=== PATIENT | female | born 1960 | race Caucasian/White ===

== ENCOUNTER 2017-01-11 12:25 | Observation (INO) | payer OTHER ==
[~2017-01-11] VITALS: Ht 157.5 cm; Wt 66.1 kg
[2017-01-11 13:20] LABS: CREATININE 0.8 mg/dL (0.6-1.3); POTASSIUM 3.9 mEq/L (3.7-5.4)
[2017-01-11 13:30] LABS: BASOPHIL COUNT 0.1 K/uL (0-0.1); EOSINOPHIL (%) 2.5 % (0-5); EOSINOPHIL COUNT 0.2 K/uL (0-0.3); HEMATOCRIT 41.3 % (36.0-46.0); IMMATURE GRANULOCYTE (%) 0.5 % (0.0-0.7); IMMATURE GRANULOCYTE COUNT 0.4 K/uL; LYMPHOCYTE COUNT 2.8 K/uL (1.0-2.8); MCH 29.1 PG (29.0-34.0); MCHC 33.9 G/DL (30.0-36.0); MCV 85.9 FL (83-99); MEAN PLAT.VOLUME 10.1 uM^3 (9.5-12.4); MONOCYTE (%) 4.5 % (3-12); MONOCYTE COUNT 0.4 K/uL (0-0.8); NEUTROPHIL (%) 59.5 % (45-76); NEUTROPHIL COUNT 5.2 K/uL (1.8-6.4); PLATELET COUNT 359 K/uL (156-360); RBC DIS.WIDTH-CV 13.6 % (11.8-14.6); RBC DIS.WIDTH-SD 41.8 % (39-53); RED BLOOD COUNT 4.81 M/uL (3.80-5.20); WHITE BLOOD COUNT 8.7 K/uL (4.1-10.2)
[2017-01-11 13:35] LABS: CARBON DIOXIDE (BICARBONATE) 30.6 MEQ/L (20-31)
[2017-01-11 13:41] LABS: INTER. NORMALIZED RATIO 1.1; PROTHROMBIN TIME 10.9 (9.2-11.2); PTT 30.2 (25-32)
[2017-01-11 13:42] LABS: CHLORIDE 97 mEq/L (99-109); POTASSIUM 3.8 mEq/L (3.7-5.4); SODIUM 133 mEq/L (136-147)
[2017-01-11 13:45] LABS: ANION GAP 10 MEQ/L (2-14)
[2017-01-11 13:46] LABS: TOTAL BILIRUBIN 0.2 mg/dL (0.0-1.0)
[2017-01-11 13:48] LABS: ALKALINE PHOSPHATASE 116 IU/L (3-129); GFR ESTIMATE (CALCULATED) > 59 mL/min/
[2017-01-11 13:49] LABS: UREA NITROGEN (BUN) 23 mg/dL (9-23)
[2017-01-11 13:50] LABS: DIRECT BILIRUBIN 0.1 mg/dL (0.0-0.3)
[2017-01-11 13:51] LABS: TROP-I INTERPRETATION NEGATIVE; TROPONIN-I 0.02 ng/mL (0.0-0.30)
[2017-01-11 13:51] LABS: GLUCOSE 507 mg/dL (70-99)
[2017-01-11 14:46] LABS: HDL CHOLESTEROL 31 MG/DL (Desirable>=50); NON-HDL CHOLESTEROL 321 mg/dL (Desirable<160); TOTAL CHOLESTEROL 352 mg/dL (Desirable<200); TRIGLYCERIDES 550 MG/DL (Normal: <150)
[2017-01-11] MEDS ORDERED: METFORMIN HCL750 MG PO (15:09)
[2017-01-11] MEDS ORDERED: GABAPENTIN400 MG PO (15:09)
[2017-01-11] MEDS ORDERED: CITALOPRAM HBR40 MG PO (15:09)
[2017-01-11] MEDS ORDERED: ASPIR 8181 M1 PO (15:09)
[2017-01-11] MEDS ORDERED: CARVEDILOL25 MG PO (15:09)
[2017-01-11] MEDS ORDERED: ELIQUIS5 MG PO (15:09)
[2017-01-11] MEDS ORDERED: FENOFIBRATE145 M1 PO (15:10)
[2017-01-11] MEDS ORDERED: HYDROCHLOROTHIA25 MG PO (15:10)
[2017-01-11] MEDS ORDERED: TOUJEO SOL300 UNIT/1 SC (15:10)
[2017-01-11] MEDS ORDERED: PRAVASTATIN SOD40 MG PO (15:10)
[2017-01-11] MEDS ORDERED: NOVOLOG 10100 UNITS/ SC (15:10)
[2017-01-11] MEDS ORDERED: LISINOPRIL5 MG PO (15:10)
[2017-01-11 16:01] LABS: POINT-OF-CARE METER ID UU14100415
[2017-01-11 16:26] LABS: ADD MIUA? YES; BILIRUBIN NEGATIVE; BLOOD SMALL; COLOR YELLOW ((YELLOW)); GLUCOSE (STRIP) >=500; KETONES NEGATIVE; LEUKOCYTES MODERATE; NITRITE NEGATIVE; PROTEIN (STRIP) 100; UROBILINOGEN 0.2 MG/DL (0.2-1.0)
[2017-01-11 16:46] LABS: BACTERIA RARE /HPF; EPITHELIAL CELLS 1+ /HPF; MUCUS TRACE /LPF; UCUL ADDED? YES; WHITE BLOOD CELLS TNTC /HPF (0-5)
[2017-01-11 17:20] VITALS: BP 162/74
[2017-01-11 20:33] VITALS: BP 158/70
[2017-01-11 22:03] LABS: POINT-OF-CARE METER ID UU14174225
[2017-01-12 00:40] VITALS: BP 170/74
[2017-01-12 03:40] VITALS: BP 160/70
[2017-01-12 07:12] LABS: HEMATOCRIT 44.3 % (36.0-46.0); MCH 28.2 PG (29.0-34.0); MCHC 32.1 G/DL (30.0-36.0); MCV 87.9 FL (83-99); MEAN PLAT.VOLUME 10.2 uM^3 (9.5-12.4); PLATELET COUNT 356 K/uL (156-360); RBC DIS.WIDTH-CV 13.9 % (11.8-14.6); RBC DIS.WIDTH-SD 44.1 % (39-53); RED BLOOD COUNT 5.04 M/uL (3.80-5.20); WHITE BLOOD COUNT 7.9 K/uL (4.1-10.2)
[2017-01-12 07:39] LABS: ANION GAP 7 MEQ/L (2-14); CHLORIDE 106 MEQ/L (99-109); POTASSIUM 3.7 MEQ/L (3.7-5.4); SAMPLE HEMOLYSIS CHECK 0; SAMPLE ICTERIC CHECK 0; SAMPLE LIPEMIA CHECK 0; UREA NITROGEN (BUN) 16 mg/dL (9-23)
[2017-01-12 07:41] LABS: GFR ESTIMATE (CALCULATED) > 59 mL/min/; GLUCOSE 96 mg/dL (70-99); SODIUM 140 MEQ/L (136-147)
[2017-01-12 07:57] VITALS: BP 164/81
[2017-01-12 08:40] LABS: Estimated Average Glucose 364 mg/dL (70-123); HEMOGLOBIN A1c (GLYCOHEMOGLOB) 14.3 % HGB (Below 5.7)
[2017-01-12 09:18] LABS: PROTHROMBIN TIME 10.4 (9.2-11.2)
[2017-01-12 10:02] LABS: POINT-OF-CARE METER ID UU14100415
[2017-01-12 11:03] VITALS: BP 154/71
[2017-01-12] MEDS ORDERED: NOVOLOG 10100 UNITS/ SC (11:40)
[2017-01-12] MEDS ORDERED: TOUJEO SOL300 UNIT/1 SC (11:40)
== END 2017-01-12 13:38 | disposition home or self-care (01) ==
LOC: EME 12:25 → EDOF 15:31 → 5SOUTH 15:31
PROVIDERS: Emergency Medicine; Internal Medicine
DX: E11.65 Type 2 diabetes mellitus with hyperglycemia (principal); Z86.73 Personal history of transient ischemic attack (TIA), and cerebral infarction without residual deficits; E78.5 Hyperlipidemia, unspecified; I10 Essential (primary) hypertension; F17.200 Nicotine dependence, unspecified, uncomplicated
CPT/HCPCS: 70450; 70496; 70498; 80047; 80048; 80061; 80076; 81003; 82010; 82803; 82948; 83036; 84484; 85025; 85027; 85610; 85730; 87086; 93005; 93306; 99281; 99285; G0378; J1815; J7030

== ENCOUNTER 2017-06-21 14:42 | Inpatient (IN) | payer OTHER ==
[~2017-06-21] VITALS: Ht 162.6 cm; Wt 61.0 kg
[~2017-06-21 14:42] MED LIST: ASPIR 8181 M1 PO; CARVEDILOL25 MG PO; CITALOPRAM HBR40 MG PO; ELIQUIS5 MG PO; FENOFIBRATE145 M1 PO; GABAPENTIN400 MG PO; HYDROCHLOROTHIA25 MG PO; LISINOPRIL5 MG PO; METFORMIN HCL750 MG PO; NOVOLOG 10100 UNITS/ SC; PRAVASTATIN SOD40 MG PO; TOUJEO SOL300 UNIT/1 SC
[2017-06-21 15:24] LABS: EOSINOPHIL (%) 0.1 % (0-5); HEMATOCRIT 56.8 % (36.0-46.0); IMMATURE GRANULOCYTE (%) 1.2 % (0.0-0.7); IMMATURE GRANULOCYTE COUNT 0.1 K/uL; INSTRUMENT ABS NEUTROPHIL CT 9.5 K/uL; LYMPHOCYTE COUNT 1.7 K/uL (1.0-2.8); MCH 28.7 PG (29.0-34.0); MCHC 34.3 G/DL (30.0-36.0); MCV 83.7 FL (83-99); MEAN PLAT.VOLUME 8.9 uM^3 (9.5-12.4); MONOCYTE (%) 1.9 % (3-12); MONOCYTE COUNT 0.2 K/uL (0-0.8); NEUTROPHIL (%) 81.9 % (45-76); NEUTROPHIL COUNT 9.5 K/uL (1.8-6.4); PLATELET COUNT 478 K/uL (156-360); RBC DIS.WIDTH-CV 13.3 % (11.8-14.6); RBC DIS.WIDTH-SD 39.8 % (39-53); RED BLOOD COUNT 6.79 M/uL (3.80-5.20); WHITE BLOOD COUNT 11.6 K/uL (4.1-10.2)
[2017-06-21 15:32] LABS: PROTHROMBIN TIME 10.8 SEC (10.2-12.9)
[2017-06-21 15:35] LABS: CHLORIDE 96 mEq/L (99-109); POTASSIUM 3.3 mEq/L (3.7-5.4); PTT 37.7 SEC (25-37); SODIUM 137 mEq/L (136-147)
[2017-06-21 15:37] LABS: GLUCOSE 82 mg/dL (70-99)
[2017-06-21 15:39] LABS: ANION GAP 14 MEQ/L (2-14); TOTAL BILIRUBIN 0.3 mg/dL (0.0-1.0)
[2017-06-21 15:41] LABS: ALKALINE PHOSPHATASE 153 IU/L (3-129); GFR ESTIMATE (CALCULATED) > 59 mL/min/
[2017-06-21 15:42] LABS: UREA NITROGEN (BUN) 15 mg/dL (9-23)
[2017-06-21 16:00] LABS: POINT-OF-CARE METER ID UU13113702
[2017-06-21 17:15] LABS: ADD MIUA? YES; BILIRUBIN NEGATIVE; BLOOD NEGATIVE; COLOR YELLOW ((YELLOW)); GLUCOSE (STRIP) >=500; KETONES NEGATIVE; LEUKOCYTES NEGATIVE; NITRITE NEGATIVE; PROTEIN (STRIP) >=500; SPECIFIC GRAVITY 1.009 (1.000-1.030); UROBILINOGEN 0.2 MG/DL (0.2-1.0)
[2017-06-21 17:30] LABS: BACTERIA RARE /HPF; EPITHELIAL CELLS RARE /HPF; GRANULAR CASTS 0-5 /LPF; HYALINE CASTS 0-5 /LPF; MUCUS TRACE /LPF; RED BLOOD CELLS 0-5 /HPF (0-5); UCUL ADDED? NO; WHITE BLOOD CELLS 0-5 /HPF (0-5)
[2017-06-21 18:30] LABS: TROP-I INTERPRETATION NEGATIVE; TROPONIN-I 0.06 ng/mL (0.0-0.30)
[2017-06-21 22:30] VITALS: BP 204/108
[2017-06-21] MEDS ORDERED: GABAPENTIN300 MG PO (22:37)
[2017-06-21] MEDS ORDERED: COUMADIN1 MG PO (22:38)
[2017-06-21] MEDS ORDERED: NOVOLOG 10100 UNITS/ SC (22:40)
[2017-06-21 22:55] LABS: LIPASE 12 U/L (1.0-51.0)
[2017-06-21 23:21] LABS: AMPHETAMINES QUANT VALUE 0 NG/ML; BARBITUATES QUANT VALUE 0 NG/ML; BENZODIAZEPINES QUANT VALUE 0 NG/ML; BENZODIAZEPINES, URINE SCREEN Negative (200 ng/mL); MARIJUANA QUANT VALUE 0 NG/ML; OPIATES QUANTITATIVE VALUE 0 NG/ML; PHENCYCLIDINE QUANT VALUE 0 NG/ML
[2017-06-21 23:44] LABS: METH RESISTANT S AUREUS PCR NEGATIVE (NEGATIVE)
[2017-06-21 23:45] LABS: PROBE CHECK PASS; SPECIMEN PROCESSING CONTROL PASS
[2017-06-22] VITALS (16 sets, daily range): BP systolic 120–219; BP diastolic 64–129
[2017-06-22 01:27] LABS: POINT-OF-CARE METER ID UU13113731
[2017-06-22 04:33] LABS: HEMATOCRIT 41.2 % (36.0-46.0); MCH 28.6 PG (29.0-34.0); MCHC 34.5 G/DL (30.0-36.0); MCV 83.1 FL (83-99); PLATELET COUNT 377 K/uL (156-360); RBC DIS.WIDTH-SD 38.9 % (39-53); RED BLOOD COUNT 4.96 M/uL (3.80-5.20); WHITE BLOOD COUNT 11.5 K/uL (4.1-10.2)
[2017-06-22 04:35] LABS: CHLORIDE 103 mEq/L (99-109); SODIUM 139 mEq/L (136-147)
[2017-06-22 04:36] LABS: MAGNESIUM 1.4 mg/dL (1.3-2.7)
[2017-06-22 04:38] LABS: ANION GAP 10 MEQ/L (2-14); GLUCOSE 211 mg/dL (70-99)
[2017-06-22 04:41] LABS: GFR ESTIMATE (CALCULATED) > 59 mL/min/
[2017-06-22 04:42] LABS: UREA NITROGEN (BUN) 11 mg/dL (9-23)
[2017-06-22 04:47] LABS: TROP-I INTERPRETATION NEGATIVE; TROPONIN-I 0.11 ng/mL (0.0-0.30)
[2017-06-22 06:43] LABS: POINT-OF-CARE METER ID UU14174217
[2017-06-22 12:39] LABS: TROP-I INTERPRETATION NEGATIVE; TROPONIN-I 0.06 ng/mL (0.0-0.30)
[2017-06-22 12:45] LABS: Estimated Average Glucose 375 mg/dL (70-123); HEMOGLOBIN A1c (GLYCOHEMOGLOB) 14.7 % HGB (Below 5.7)
[2017-06-22 12:54] LABS: HDL CHOLESTEROL 35 MG/DL (Desirable>=50); LDL CHOLESTEROL 321 mg/dL (Desirable<100); NON-HDL CHOLESTEROL 389 mg/dL (Desirable<160); TOTAL CHOLESTEROL 424 mg/dL (Desirable<200); TRIGLYCERIDES 338 MG/DL (Normal: <150)
[2017-06-22] MEDS ORDERED: COREG25 M1 PO (15:01)
[2017-06-22] MEDS ORDERED: ASPIRIN81 M2 PO (15:02)
[2017-06-22] MEDS ORDERED: GABAPENTIN400 MG PO (15:03)
[2017-06-22] MEDS ORDERED: TOUJEO SOL300 UNIT/1 SC (15:04)
[2017-06-22] MEDS ORDERED: ELIQUIS5 MG PO (15:05)
[2017-06-22] MEDS ORDERED: NOVOLOG PE100 UNITS/ SC (15:06)
[2017-06-22] MEDS ORDERED: HYDROCHLOROTHIA25 MG PO (15:07)
[2017-06-22] MEDS ORDERED: PRAVACHOL40 MG PO (15:07)
[2017-06-22] MEDS ORDERED: LISINOPRIL5 MG PO (15:08)
[2017-06-22] MEDS ORDERED: METFORMIN HCL750 MG PO (15:08)
[2017-06-22] MEDS ORDERED: CELEXA40 MG PO (15:09)
[2017-06-22] MEDS ORDERED: FENOFIBRATE145 M1 PO (15:10)
[2017-06-22 18:14] LABS: POINT-OF-CARE METER ID UU14174217
[2017-06-23] VITALS (18 sets, daily range): BP systolic 142–213; BP diastolic 60–94
[2017-06-23 00:58] LABS: POINT-OF-CARE METER ID UU14174217
[2017-06-23 06:06] LABS: HEMATOCRIT 41.6 % (36.0-46.0); MCH 28.2 PG (29.0-34.0); MCHC 32.7 G/DL (30.0-36.0); MCV 86.1 FL (83-99); MEAN PLAT.VOLUME 9.1 uM^3 (9.5-12.4); PLATELET COUNT 415 K/uL (156-360); RBC DIS.WIDTH-CV 13.3 % (11.8-14.6); RBC DIS.WIDTH-SD 41.5 % (39-53); RED BLOOD COUNT 4.83 M/uL (3.80-5.20)
[2017-06-23 06:30] LABS: ANION GAP 7 MEQ/L (2-14); CHLORIDE 106 MEQ/L (99-109); GFR ESTIMATE (CALCULATED) > 59 mL/min/; GLUCOSE 134 mg/dL (70-99); SAMPLE HEMOLYSIS CHECK 0; SAMPLE ICTERIC CHECK 0; SAMPLE LIPEMIA CHECK 0; SODIUM 141 MEQ/L (136-147); UREA NITROGEN (BUN) 10 mg/dL (9-23)
[2017-06-23 06:31] LABS: POTASSIUM 4.1 MEQ/L (3.7-5.4)
[2017-06-23 12:37] LABS: POINT-OF-CARE METER ID UU14162636
[2017-06-23 17:50] LABS: POINT-OF-CARE METER ID UU14162636
[2017-06-23 22:37] LABS: POINT-OF-CARE METER ID UU13113731
[2017-06-24] VITALS (7 sets, daily range): BP systolic 129–186; BP diastolic 66–85
[2017-06-24 05:48] LABS: HEMATOCRIT 42.2 % (36.0-46.0); MCH 29.8 PG (29.0-34.0); MCHC 34.1 G/DL (30.0-36.0); MCV 87.2 FL (83-99); MEAN PLAT.VOLUME 9.3 uM^3 (9.5-12.4); PLATELET COUNT 382 K/uL (156-360); RBC DIS.WIDTH-CV 13.3 % (11.8-14.6); RBC DIS.WIDTH-SD 42.5 % (39-53); RED BLOOD COUNT 4.84 M/uL (3.80-5.20); WHITE BLOOD COUNT 7.1 K/uL (4.1-10.2)
[2017-06-24 07:07] LABS: ANION GAP 9 MEQ/L (2-14); CHLORIDE 106 MEQ/L (99-109); GFR ESTIMATE (CALCULATED) > 59 mL/min/; GLUCOSE 182 mg/dL (70-99); MAGNESIUM 2.1 mg/dl (1.3-2.7); POTASSIUM 4.2 MEQ/L (3.7-5.4); SAMPLE HEMOLYSIS CHECK 0; SAMPLE ICTERIC CHECK 0; SAMPLE LIPEMIA CHECK 0; SODIUM 140 MEQ/L (136-147); UREA NITROGEN (BUN) 14 mg/dL (9-23)
[2017-06-24 09:01] LABS: POINT-OF-CARE METER ID UU13113748
[2017-06-24 12:07] LABS: POINT-OF-CARE METER ID UU14208751
[2017-06-24 17:20] LABS: POINT-OF-CARE METER ID UU14188625
[2017-06-24 21:39] LABS: POINT-OF-CARE METER ID UU13113717
[2017-06-25 03:12] VITALS: BP 130/71
[2017-06-25 06:06] LABS: BASOPHIL COUNT 0.1 K/uL (0-0.1); EOSINOPHIL (%) 2.9 % (0-5); EOSINOPHIL COUNT 0.2 K/uL (0-0.3); HEMATOCRIT 38.6 % (36.0-46.0); IMMATURE GRANULOCYTE (%) 0.7 % (0.0-0.7); IMMATURE GRANULOCYTE COUNT 0.1 K/uL; INSTRUMENT ABS NEUTROPHIL CT 3.9 K/uL; LYMPHOCYTE COUNT 2.6 K/uL (1.0-2.8); MCH 29.4 PG (29.0-34.0); MCHC 33.7 G/DL (30.0-36.0); MCV 87.3 FL (83-99); MEAN PLAT.VOLUME 9.8 uM^3 (9.5-12.4); MONOCYTE (%) 4.6 % (3-12); MONOCYTE COUNT 0.3 K/uL (0-0.8); NEUTROPHIL (%) 54.6 % (45-76); NEUTROPHIL COUNT 3.9 K/uL (1.8-6.4); PLATELET COUNT 372 K/uL (156-360); RBC DIS.WIDTH-CV 13.2 % (11.8-14.6); RED BLOOD COUNT 4.42 M/uL (3.80-5.20); WHITE BLOOD COUNT 7.2 K/uL (4.1-10.2)
[2017-06-25 06:42] LABS: ALKALINE PHOSPHATASE 86 IU/L (3-129); ANION GAP 6 MEQ/L (2-14); ANION GAP 8 MEQ/L (2-14); CHLORIDE 104 MEQ/L (99-109); GFR ESTIMATE (CALCULATED) > 59 mL/min/; GLUCOSE 190 mg/dL (70-99); GLUCOSE 204 mg/dL (70-99); POTASSIUM 4.1 MEQ/L (3.7-5.4); SAMPLE HEMOLYSIS CHECK 0; SAMPLE ICTERIC CHECK 0; SAMPLE LIPEMIA CHECK 0; SODIUM 136 MEQ/L (136-147); SODIUM 137 MEQ/L (136-147); TOTAL BILIRUBIN 0.3 MG/DL (0.0-1.0); UREA NITROGEN (BUN) 17 mg/dL (9-23); UREA NITROGEN (BUN) 18 mg/dL (9-23)
[2017-06-25 07:50] LABS: FERRITIN 96 NG/ML (10-291)
[2017-06-25 08:02] VITALS: BP 160/90
[2017-06-25 11:30] VITALS: BP 137/66
[2017-06-25 12:01] LABS: POINT-OF-CARE METER ID UU13113717
[2017-06-25 16:21] VITALS: BP 138/65
[2017-06-25 16:53] LABS: POINT-OF-CARE METER ID UU13113717
[2017-06-25 23:36] VITALS: BP 189/88
[2017-06-26 05:58] LABS: BASOPHIL COUNT 0.1 K/uL (0-0.1); EOSINOPHIL (%) 3.5 % (0-5); EOSINOPHIL COUNT 0.3 K/uL (0-0.3); HEMATOCRIT 41.1 % (36.0-46.0); IMMATURE GRANULOCYTE (%) 0.7 % (0.0-0.7); IMMATURE GRANULOCYTE COUNT 0.1 K/uL; INSTRUMENT ABS NEUTROPHIL CT 3.5 K/uL; LYMPHOCYTE COUNT 3.2 K/uL (1.0-2.8); MCH 28.5 PG (29.0-34.0); MCHC 32.6 G/DL (30.0-36.0); MCV 87.4 FL (83-99); MEAN PLAT.VOLUME 9.5 uM^3 (9.5-12.4); MONOCYTE COUNT 0.5 K/uL (0-0.8); NEUTROPHIL (%) 46.6 % (45-76); NEUTROPHIL COUNT 3.5 K/uL (1.8-6.4); PLATELET COUNT 400 K/uL (156-360); RBC DIS.WIDTH-CV 13.1 % (11.8-14.6); RBC DIS.WIDTH-SD 42.1 % (39-53); WHITE BLOOD COUNT 7.5 K/uL (4.1-10.2)
[2017-06-26 07:03] LABS: ALKALINE PHOSPHATASE 88 IU/L (3-129); ANION GAP 7 MEQ/L (2-14); CHLORIDE 107 MEQ/L (99-109); GFR ESTIMATE (CALCULATED) > 59 mL/min/; MAGNESIUM 1.9 mg/dl (1.3-2.7); POTASSIUM 4.1 MEQ/L (3.7-5.4); SAMPLE HEMOLYSIS CHECK 0; SAMPLE ICTERIC CHECK 0; SAMPLE LIPEMIA CHECK 0; SODIUM 141 MEQ/L (136-147); UREA NITROGEN (BUN) 16 mg/dL (9-23)
[2017-06-26 07:04] LABS: GLUCOSE 101 mg/dL (70-99); TOTAL BILIRUBIN 0.2 MG/DL (0.0-1.0)
[2017-06-26 07:39] VITALS: BP 175/85
[2017-06-26 12:31] LABS: POINT-OF-CARE METER ID UU13113717
[2017-06-26 15:30] VITALS: BP 165/83
[2017-06-26 17:12] LABS: POINT-OF-CARE METER ID UU13113717
[2017-06-26 21:25] LABS: POINT-OF-CARE METER ID UU14188625; POINT-OF-CARE USER ID BHSKTD
[2017-06-26 23:42] VITALS: BP 184/88
[2017-06-27 06:05] LABS: HEMATOCRIT 39.8 % (36.0-46.0); MCH 29.4 PG (29.0-34.0); MCHC 33.4 G/DL (30.0-36.0); MCV 87.9 FL (83-99); MEAN PLAT.VOLUME 9.6 uM^3 (9.5-12.4); PLATELET COUNT 388 K/uL (156-360); RBC DIS.WIDTH-CV 13.2 % (11.8-14.6); RBC DIS.WIDTH-SD 42.6 % (39-53); RED BLOOD COUNT 4.53 M/uL (3.80-5.20); WHITE BLOOD COUNT 7.3 K/uL (4.1-10.2)
[2017-06-27 06:31] LABS: ANION GAP 8 MEQ/L (2-14); CHLORIDE 105 MEQ/L (99-109); GFR ESTIMATE (CALCULATED) > 59 mL/min/; GLUCOSE 108 mg/dL (70-99); MAGNESIUM 1.8 mg/dl (1.3-2.7); POTASSIUM 4.1 MEQ/L (3.7-5.4); SAMPLE HEMOLYSIS CHECK 0; SAMPLE ICTERIC CHECK 0; SAMPLE LIPEMIA CHECK 0; SODIUM 139 MEQ/L (136-147); UREA NITROGEN (BUN) 15 mg/dL (9-23)
[2017-06-27 07:48] LABS: POINT-OF-CARE METER ID UU14188625
[2017-06-27 07:52] VITALS: BP 192/83
[2017-06-27 07:55] VITALS: BP 160/78
[2017-06-27 07:56] VITALS: BP 160/78
[2017-06-27] MEDS ORDERED: MYCOSTATIN 100,60 ML PO (13:01)
[2017-06-27] MEDS ORDERED: ELIQUIS5 MG PO (13:02)
== END 2017-06-27 15:25 | disposition home health service (06) | DRG 305 ==
LOC: EME 14:42 → 4WEST 20:23 → 5SOUTH 20:23 → EDOF 20:23 → ENRESERV 20:31 → EDOF 21:06 → ENRESERV 21:07 → 4WEST 22:05 → ENRESERV 06-24 15:13 → 5SOUTH 06-24 16:43
PROVIDERS: Emergency Medicine; Hospitalist; Internal Medicine Critical Care Medicine
DX: I16.1 Hypertensive emergency (principal); I67.4 Hypertensive encephalopathy; E87.2 Acidosis; E87.6 Hypokalemia; R47.01 Aphasia; D75.1 Secondary polycythemia; I10 Essential (primary) hypertension; E11.9 Type 2 diabetes mellitus without complications; E78.5 Hyperlipidemia, unspecified; E78.00 Pure hypercholesterolemia, unspecified; I67.2 Cerebral atherosclerosis; D75.89 Other specified diseases of blood and blood-forming organs; F05 Delirium due to known physiological condition; F17.200 Nicotine dependence, unspecified, uncomplicated; Q21.1 Atrial septal defect; Z79.4 Long term (current) use of insulin; Z91.14 Patient's other noncompliance with medication regimen; Z79.82 Long term (current) use of aspirin; Z79.01 Long term (current) use of anticoagulants; Z86.73 Personal history of transient ischemic attack (TIA), and cerebral infarction without residual deficits
CPT/HCPCS: 70450; 70544; 70549; 70551; 71010; 80048; 80053; 80061; 80306 90; 81003; 82607; 82728; 82746; 82948; 83036; 83605; 83690; 83735; 84100; 84484; 85025; 85027; 85610; 85651; 85730; 87040; 87641; 92523 GN; 92610 GN; 93005; 97530 GO; 99281; 99284; J0461; J1650; J1815; J2060; J2405; J3475; J3480; J7120; S0028

== ENCOUNTER 2017-06-28 17:25 | Emergency (ER) | payer OTHER ==
[~2017-06-28] VITALS: Ht 160 cm; Wt 58.2 kg
[~2017-06-28 17:25] MED LIST changes: +ASPIRIN81 M2 PO; +CELEXA40 MG PO; +COREG25 M1 PO; +COUMADIN1 MG PO; +GABAPENTIN300 MG PO; +MYCOSTATIN 100,60 ML PO; +NOVOLOG PE100 UNITS/ SC; +PRAVACHOL40 MG PO
[2017-06-28 17:56] LABS: POINT-OF-CARE METER ID UU14100415
[2017-06-28 18:56] LABS: HEMATOCRIT 44.7 % (36.0-46.0); MCHC 33.1 G/DL (30.0-36.0); MCV 87.5 FL (83-99); MEAN PLAT.VOLUME 9.3 uM^3 (9.5-12.4); PLATELET COUNT 341 K/uL (156-360); RBC DIS.WIDTH-CV 13.1 % (11.8-14.6); RBC DIS.WIDTH-SD 41.9 % (39-53); RED BLOOD COUNT 5.11 M/uL (3.80-5.20)
[2017-06-28 19:05] LABS: CHLORIDE 106 mEq/L (99-109); POTASSIUM 3.7 mEq/L (3.7-5.4); SODIUM 138 mEq/L (136-147)
[2017-06-28 19:07] LABS: GLUCOSE 108 mg/dL (70-99)
[2017-06-28 19:08] LABS: ANION GAP 11 MEQ/L (2-14)
[2017-06-28 19:10] LABS: GFR ESTIMATE (CALCULATED) > 59 mL/min/
[2017-06-28 19:11] LABS: UREA NITROGEN (BUN) 21 mg/dL (9-23)
[2017-06-28 19:22] LABS: POINT-OF-CARE METER ID UU14100415
[2017-06-28 20:15] LABS: ADD MIUA? YES; BILIRUBIN NEGATIVE; BLOOD NEGATIVE; COLOR YELLOW ((YELLOW)); GLUCOSE (STRIP) >=500; KETONES NEGATIVE; LEUKOCYTES TRACE; NITRITE NEGATIVE; PROTEIN (STRIP) >=500; SPECIFIC GRAVITY 1.014 (1.000-1.030); UROBILINOGEN 0.2 MG/DL (0.2-1.0)
[2017-06-28 20:22] LABS: BACTERIA NONE SEEN /HPF; EPITHELIAL CELLS 2+ /HPF; GRANULAR CASTS 0-5 /LPF; HYALINE CASTS 0-5 /LPF; MUCUS TRACE /LPF; RED BLOOD CELLS 0-5 /HPF (0-5); UCUL ADDED? YES; WHITE BLOOD CELLS 20-30 /HPF (0-5)
[2017-06-28 20:33] LABS: POINT-OF-CARE METER ID UU14100415
[2017-06-28 21:33] VITALS: BP 159/65
== END 2017-06-28 21:34 | disposition home or self-care (01) ==
LOC: EME 17:25
PROVIDERS: Emergency Medicine
DX: E11.649 Type 2 diabetes mellitus with hypoglycemia without coma (principal); Z79.4 Long term (current) use of insulin; E78.5 Hyperlipidemia, unspecified; I10 Essential (primary) hypertension; R56.9 Unspecified convulsions; F17.200 Nicotine dependence, unspecified, uncomplicated; Z86.73 Personal history of transient ischemic attack (TIA), and cerebral infarction without residual deficits
CPT/HCPCS: 70450; 71020; 80048; 81003; 82948; 85027; 87086; 99281; 99285

== ENCOUNTER 2017-08-17 13:51 | Observation (INO) | payer OTHER ==
[~2017-08-17] VITALS: Ht 160 cm; Wt 60.0 kg
[2017-08-17 14:27] LABS: POINT-OF-CARE METER ID UU13113747
[2017-08-17 14:28] LABS: HEMATOCRIT 42.2 % (36.0-46.0); MCH 29.2 PG (29.0-34.0); MCHC 34.1 G/DL (30.0-36.0); MCV 85.6 FL (83-99); MEAN PLAT.VOLUME 9.3 uM^3 (9.5-12.4); PLATELET COUNT 447 K/uL (156-360); RBC DIS.WIDTH-CV 13.1 % (11.8-14.6); RBC DIS.WIDTH-SD 40.7 % (39-53); RED BLOOD COUNT 4.93 M/uL (3.80-5.20); WHITE BLOOD COUNT 8.3 K/uL (4.1-10.2)
[2017-08-17 14:30] LABS: CARBON DIOXIDE (BICARBONATE) 30.2 MEQ/L (20-31)
[2017-08-17 14:34] LABS: INTER. NORMALIZED RATIO 1.1; PROTHROMBIN TIME 11.7 SEC (10.2-12.9)
[2017-08-17 14:37] LABS: PTT 35.6 SEC (25-37)
[2017-08-17 14:40] LABS: CHLORIDE 100 mEq/L (99-109); POTASSIUM 3.8 mEq/L (3.7-5.4); SODIUM 134 mEq/L (136-147)
[2017-08-17 14:41] LABS: GLUCOSE 201 mg/dL (70-99)
[2017-08-17 14:43] LABS: ANION GAP 9 MEQ/L (2-14)
[2017-08-17 14:45] LABS: GFR ESTIMATE (CALCULATED) > 59 mL/min/
[2017-08-17 14:46] LABS: UREA NITROGEN (BUN) 24 mg/dL (9-23)
[2017-08-17 14:51] LABS: TROP-I INTERPRETATION NEGATIVE; TROPONIN-I 0.16 ng/mL (0.0-0.30)
[2017-08-17] MEDS ORDERED: METFORMIN HCL750 MG PO (16:01)
[2017-08-17] MEDS ORDERED: HYDROCHLOROTHIA25 MG PO (16:01)
[2017-08-17 17:14] VITALS: BP 138/61; BP 143/70
[2017-08-17 17:15] VITALS: BP 152/70
[2017-08-17 17:33] LABS: POINT-OF-CARE METER ID UU13113831
[2017-08-17 20:14] LABS: TROP-I INTERPRETATION NEGATIVE; TROPONIN-I 0.08 ng/mL (0.0-0.30)
[2017-08-17 20:57] LABS: POINT-OF-CARE METER ID UU13113700
[2017-08-17 21:24] VITALS: BP 194/93
[2017-08-17 23:40] VITALS: BP 130/80
[2017-08-18 02:02] LABS: TROP-I INTERPRETATION NEGATIVE; TROPONIN-I 0.08 ng/mL (0.0-0.30)
[2017-08-18 03:30] VITALS: BP 113/58
[2017-08-18 05:53] LABS: BASOPHIL COUNT 0.1 K/uL (0-0.1); EOSINOPHIL (%) 2.6 % (0-5); EOSINOPHIL COUNT 0.2 K/uL (0-0.3); HEMATOCRIT 39.8 % (36.0-46.0); IMMATURE GRANULOCYTE (%) 0.7 % (0.0-0.7); IMMATURE GRANULOCYTE COUNT 0.1 K/uL; LYMPHOCYTE COUNT 3.1 K/uL (1.0-2.8); MCH 29.9 PG (29.0-34.0); MCHC 33.9 G/DL (30.0-36.0); MCV 88.1 FL (83-99); MEAN PLAT.VOLUME 9.4 uM^3 (9.5-12.4); MONOCYTE (%) 5.2 % (3-12); MONOCYTE COUNT 0.5 K/uL (0-0.8); NEUTROPHIL (%) 56.2 % (45-76); PLATELET COUNT 410 K/uL (156-360); RBC DIS.WIDTH-CV 13.6 % (11.8-14.6); RBC DIS.WIDTH-SD 43.8 % (39-53); RED BLOOD COUNT 4.52 M/uL (3.80-5.20); WHITE BLOOD COUNT 8.8 K/uL (4.1-10.2)
[2017-08-18 07:23] LABS: ALKALINE PHOSPHATASE 93 IU/L (3-129); ANION GAP 7 MEQ/L (2-14); CHLORIDE 108 MEQ/L (99-109); GFR ESTIMATE (CALCULATED) > 59 mL/min/; GLUCOSE 244 mg/dL (70-99); POTASSIUM 4.3 MEQ/L (3.7-5.4); SAMPLE HEMOLYSIS CHECK 0; SAMPLE ICTERIC CHECK 0; SAMPLE LIPEMIA CHECK 0; SODIUM 137 MEQ/L (136-147); TOTAL BILIRUBIN 0.3 MG/DL (0.0-1.0); UREA NITROGEN (BUN) 16 mg/dL (9-23)
[2017-08-18 07:57] LABS: AMPHETAMINES QUANT VALUE 0 NG/ML; BARBITUATES QUANT VALUE 0 NG/ML; BENZODIAZEPINES QUANT VALUE 0 NG/ML; BENZODIAZEPINES, URINE SCREEN Negative (200 ng/mL); MARIJUANA QUANT VALUE 0 NG/ML; OPIATES QUANTITATIVE VALUE 0 NG/ML; PHENCYCLIDINE QUANT VALUE 0 NG/ML
[2017-08-18 07:58] VITALS: BP 168/71
[2017-08-18 08:24] LABS: POINT-OF-CARE METER ID UU13113831
[2017-08-18 10:44] VITALS: BP 164/75
[2017-08-18 12:24] LABS: POINT-OF-CARE METER ID UU13113700
[2017-08-18] MEDS ORDERED: ASPIRIN81 M2 PO (14:42)
[2017-08-18] MEDS ORDERED: FENOFIBRATE145 M1 PO (14:42)
[2017-08-18] MEDS ORDERED: NOVOLOG PE100 UNITS/ SC (14:42)
[2017-08-18] MEDS ORDERED: CELEXA40 MG PO (14:42)
[2017-08-18] MEDS ORDERED: GLUCAGON1 MG IM (14:42)
[2017-08-18] MEDS ORDERED: LISINOPRIL5 MG PO (14:42)
[2017-08-18] MEDS ORDERED: HYDROCHLOROTHIA25 MG PO (14:42)
[2017-08-18] MEDS ORDERED: COREG25 M1 PO (14:42)
== END 2017-08-18 15:14 | disposition home or self-care (01) ==
LOC: EME 13:51 → 5WEST 15:48 → EDOF 15:48 → ENRESERV 15:49 → 5WEST 17:01
PROVIDERS: Emergency Medicine; Internal Medicine; Physician Assistant
DX: R55 Syncope and collapse (principal); R09.02 Hypoxemia; Z86.73 Personal history of transient ischemic attack (TIA), and cerebral infarction without residual deficits; E11.9 Type 2 diabetes mellitus without complications; I10 Essential (primary) hypertension; Z79.4 Long term (current) use of insulin; E78.5 Hyperlipidemia, unspecified; D64.9 Anemia, unspecified; F41.9 Anxiety disorder, unspecified; C95.91 Leukemia, unspecified, in remission; F32.9 Major depressive disorder, single episode, unspecified; Z86.19 Personal history of other infectious and parasitic diseases; F17.210 Nicotine dependence, cigarettes, uncomplicated; Z79.01 Long term (current) use of anticoagulants; Z79.82 Long term (current) use of aspirin; Z82.49 Family history of ischemic heart disease and other diseases of the circulatory system; Z90.49 Acquired absence of other specified parts of digestive tract; Z90.710 Acquired absence of both cervix and uterus
CPT/HCPCS: 70450; 71020; 80048; 80076; 80306 90; 82803; 82948; 83605; 83880; 84484; 85025; 85027; 85610; 85730; 87040; 93005; 99281; 99285; G0378; J1815; J7030

== ENCOUNTER 2017-09-15 10:05 | Emergency (ER) | payer OTHER ==
[~2017-09-15] VITALS: Ht 160 cm; Wt 65.4 kg
[~2017-09-15 10:05] MED LIST changes: +GLUCAGON1 MG IM
[2017-09-15 10:21] LABS: POINT-OF-CARE METER ID UU13113702
[2017-09-15 11:58] LABS: POINT-OF-CARE METER ID UU13113702
[2017-09-15] MEDS ORDERED: NOVOLIN,HU100 UNITS1 SC (12:51)
[2017-09-15 13:16] VITALS: BP 159/70
== END 2017-09-15 13:26 | disposition home or self-care (01) ==
LOC: EME 10:05
PROVIDERS: Emergency Medicine
DX: E11.649 Type 2 diabetes mellitus with hypoglycemia without coma (principal); I10 Essential (primary) hypertension; Z86.73 Personal history of transient ischemic attack (TIA), and cerebral infarction without residual deficits; Z79.4 Long term (current) use of insulin; Z79.01 Long term (current) use of anticoagulants; Z79.82 Long term (current) use of aspirin; F17.200 Nicotine dependence, unspecified, uncomplicated
CPT/HCPCS: 82948; 99281; 99285